=== PATIENT | female | born 1970 | race Caucasian/White ===

== ENCOUNTER 2017-10-20 10:28 | Emergency (ER) | payer OTHER ==
[~2017-10-20] VITALS: Ht 165.1 cm; Wt 93.9 kg
[2017-10-20] MEDS ORDERED: NP THYROID15 MG (10:48)
[2017-10-20] MEDS ORDERED: ONDANSETRON ODT8 MG PO (12:54)
== END 2017-10-20 13:07 | disposition home or self-care (01) ==
LOC: ED 10:28
DX: D25.9 Leiomyoma of uterus, unspecified (principal); R11.2 Nausea with vomiting, unspecified; E03.9 Hypothyroidism, unspecified; Z88.2 Allergy status to sulfonamides; Z79.899 Other long term (current) drug therapy
CPT/HCPCS: 74177; 80053; 81001; 82150; 83690; 85025; 96361; 96374; 99284; J2405; J7030; Q9967

== ENCOUNTER 2019-08-26 12:41 | Emergency (ER) | payer OTHER ==
[~2019-08-26] VITALS: Ht 162.6 cm; Wt 99.8 kg
[~2019-08-26 12:41] MED LIST: COLLAGEN PO; DITROPAN XL5 MG PO; MOTRIN IB200 MG PO; NORCO 5-325 TA1 EACH PO; NP THYROID15 MG; ONDANSETRON ODT8 MG PO; PROBIOTIC1 EAC5 PO; THYROID30 MG PO; ZOLOFT50 MG PO; [UNRECOGNIZED DRUG - OTHER] PO
--- OUTSIDE RECORDS SUMMARY | 2019-08-26 12:44 | XMS ---
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 Guidelines Source: [facility] [place] Guidelines Date: 08/14/2019 Care Coordination: Member is currently enrolled in Mental Health Services through [employer]. If services are needed through [facility] please call: [place] [phone] [place]; [phone] Crisis [phone] E.DJose Eduardo VISIT COUNT (12 MO.) 1 [facility] TOTAL 1 NOTE: Visits indicate total known visits. ED/UCC VISIT TRACKING (12 MO.) 08/26/2019 12:[address] [facility] TYPE: Emergency COMPLAINT: - ALOC INPATIENT VISIT TRACKING (12 MO.) No inpatient visits to display in this time frame [email or web address]
--- NOTE | 2019-08-27 12:09 | EKG ---
[facility] [address] [place], [place] [address] Signed Normal sinus rhythm Normal ECG No previous ECGs available Confirmed by ALBERTO ZEPEDA MD ([id number] on 08/27/2019 12:09:29 PM Electronically Signed By: ALBERTO ZEPEDA MD 08/27/19 1209 PATIENT NAME: TANESHA MELO Electrocardiogram DATE OF : 70 PHYSICIAN: ALBERTO ZEPEDA MD REPORT #: [id number] REPORT IS CONFIDENTIAL AND NOT TO BE RELEASED WITHOUT AUTHORIZATION
== END 2019-08-26 15:35 | disposition home or self-care (01) ==
LOC: ED 12:41
DX: R55 Syncope and collapse (principal); E03.9 Hypothyroidism, unspecified; Z88.2 Allergy status to sulfonamides
CPT/HCPCS: 70450; 80053; 81001; 83735; 84146; 84484; 85025; 93005; 93010; 99284-25

== ENCOUNTER 2022-11-16 19:52 | Emergency (ER) | payer OTHER | END 2022-11-16 21:41 | disposition home or self-care (01) | LOC: ED 19:52 | DX: S60.041A Contusion of right ring finger without damage to nail, initial encounter (principal); W23.0XXA Caught, crushed, jammed, or pinched between moving objects, initial encounter; Z88.2 Allergy status to sulfonamides ==

== ENCOUNTER 2024-08-04 16:10 | Emergency (ER) | payer OTHER ==
[~2024-08-04] VITALS: Ht 162.6 cm; Wt 110.6 kg
[2024-08-04] MEDS ORDERED: SILVER NITRATE 1 EA SWAB TOP ONE (17:15)
[2024-08-04 17:24] VITALS: BP 128/78
== END 2024-08-04 17:24 | disposition home or self-care (01) ==
LOC: ED 16:10
DX: S61.217A Laceration without foreign body of left little finger without damage to nail, initial encounter (principal); W26.9XXA Contact with unspecified sharp object(s), initial encounter
CPT/HCPCS: 99282